=== PATIENT | female | born 1995 | race Caucasian/White ===

== ENCOUNTER 2023-03-06 11:18 | Emergency (ER) | payer OTHER ==
[2023-03-06 11:37] VITALS: PULSE 82
--- NOTE | 2023-03-06 11:51 | ED ---
Fall HPI - General Chief Complaint: Fall Stated Complaint: fall - neck pain Time Seen by Provider: 03/06/23 11:43 Source: patient, RN notes reviewed Mode of arrival: ambulatory Limitations: no limitations - History of Present Illness Initial Comments: This is a 28-year-old female presents emergency Department chief complaint of slip and fall. She states that over the weekend she was [place] states that she slipped on rocks and struck her head. Patient did have mild headache and neck pain and stiffness. Patient states he has improved some. Denies any blurred vision or nausea vomiting fevers chills patient offers no other associated symptoms. - Related Data Home Medications Medication Instructions Recorded Confirmed Cetirizine HCl 10 mg PO HS 02/10/16 02/10/16 Levonorgestrel/Ethin.estradiol 1 tab PO DAILY 02/10/16 02/10/16 [Aviane-28 Tablet] Mupirocin Calcium [Mupirocin] 1 applic TOPICAL TID 02/10/16 02/10/16 PARoxetine HCL [Paroxetine HCl] 20 mg PO DAILY 02/10/16 02/10/16 Allergies Allergy/AdvReac Type Severity Reaction Status Date / Time Milk Containing Products Allergy Nausea Verified 03/06/23 11:39 [Dairy] Penicillins AdvReac Unknown Verified 03/06/23 11:39 Review of Systems ROS Statement: Those systems with pertinent positive or pertinent negative responses have been documented in the HPI. ROS Other: All systems not noted in ROS Statement are negative. Past Medical History Past Medical History: No Reported History History of Any Multi-Drug Resistant Organisms: None Reported Past Surgical History: Tonsillectomy Additional Past Surgical History / Comment(s): [place] teeth removal (spring 2022) Past Psychological History: No Psychological Hx Reported Smoking Status: Never smoker Past Alcohol Use History: Occasional Past Drug Use History: None Reported General Exam Limitations: no limitations General appearance: alert, in no apparent distress Head exam: Present: atraumatic, normocephalic, normal inspection Eye exam: Present: normal appearance, PERRL, EOMI. Absent: scleral icterus, conjunctival injection, periorbital swelling ENT exam: Present: normal exam, normal oropharynx, mucous membranes moist Neck exam: Present: normal inspection, tenderness, full ROM. Absent: meningismus, lymphadenopathy Respiratory exam: Present: normal lung sounds bilaterally. Absent: respiratory distress, wheezes, rales, rhonchi, stridor Cardiovascular Exam: Present: regular rate, normal rhythm, normal heart sounds. Absent: systolic murmur, diastolic murmur, rubs, gallop, clicks Neurological exam: Present: alert, oriented X3, CN II-XII intact, reflexes normal. Absent: motor sensory deficit Course Vital Signs 03/06/23 03/06/23 11:33 13:34 Temperature 98.0 F 98.1 F Pulse Rate 82 82 Respiratory 18 16 Rate Blood Pressure 144/75 122/82 O2 Sat by Pulse 99 96 Oximetry Medical Decision Making - Medical Decision Making Was pt. sent in by a medical professional or institution (, [facility], CUT OUT WORKER, urgent care, hospital, or residential...) When possible be specific @ -No Did you speak to anyone other than the patient for history (EMS, parent, family, police, friend...)? What history was obtained from this source @ -No Did you review nursing and triage notes (agree or disagree)? Why? @ -I reviewed and agree with nursing and triage notes Were old charts reviewed (outside hosp., previous admission, EMS record, old EKG, old radiological studies, urgent care reports/EKG's, residential records)? Report findings @ -No old charts were reviewed Differential Diagnosis (chest pain, altered mental status, abdominal pain women, abdominal pain men, vaginal bleeding, weakness, fever, dyspnea, syncope, headache, dizziness, GI bleed, back pain, seizure, CVA, palpatations, mental health, musculoskeletal)? @ -Fall, and currently lives, depression, cervical fracture EKG interpreted by me (3pts min.). @ -None X-rays interpreted by me (1pt min.). @ -None done CT interpreted by me (1pt min.). @ -CT brain, C-spine shows no acute intracranial hemorrhages cervical spine spurring noted no acute fracture U/S interpreted by me (1pt. min.). @ -None done What testing was considered but not performed or refused? (CT, X-rays, U/S, labs)? Why? @ -None What meds were considered but not given or refused? Why? @ -None Did you discuss the management of the patient with other professionals (professionals i.e. , [facility], CUT OUT WORKER, lab, RT, psych nurse, 7th grade social studies teacher, peoplesoft taleo manager, teacher, chief sustainability officer, case investigator)? Give summary @ -No Was smoking cessation discussed for >3mins.? @ -No Was critical care preformed (if so, how long)? @ -No Were there social determinants of health that impacted care today? How? (Homelessness, low income, unemployed, alcoholism, drug addiction, wesley sportation, low edu. Level, literacy, decrease access to med. care, long term, rehab)? @ -No Was there de-escalation of care discussed even if they declined (Discuss DNR or withdrawal of care, Hospice)? DNR status @ -No What co-morbidities impacted this encounter? (DM, HTN, Smoking, COPD, CAD, Cancer, CVA, ARF, Chemo, Hep., AIDS, mental health diagnosis, sleep apnea, morbid obesity)? @ -None Was patient admitted / discharged? Hospital course, mention meds given and route, prescriptions, significant lab abnormalities, going to OR and other pertinent info. @ -Discharge patient has essentially negative CT there is some spurring noted will follow-up outpatient for MRI with orthopedics her PCP. Undiagnosed new problem with uncertain prognosis? @ -No Drug Therapy requiring intensive monitoring for toxicity (Heparin, Nitro, Insulin, Cardizem)? @ -No Were any procedures done? @ -No Diagnosis/symptom? @ -Fall, closed head injury, cervical spine spurring Acute, or Chronic, or Acute on Chronic? @ -Acute Uncomplicated (without systemic symptoms) or Complicated (systemic symptoms)? @ -Uncomplicated. Side effects of treatment? @ -No Exacerbation, Progression, or Severe Exacerbation? @ -No Poses a threat to life or bodily function? How? (Chest pain, [place], [place], pneumonia, PE, COPD, DKA, ARF, appy, cholecystitis, CVA, Diverticulitis, Homicidal, Suicidal, threat to staff... and all critical care pts) @ -No Disposition Clinical Impression: Fall, Closed head injury, Cervical spine degeneration Disposition: HOME SELF-CARE Condition: Stable Instructions (If sedation given, give patient instructions): Head Injury (ED) Additional Instructions: Please return to the Emergency Department if symptoms worsen or any other concerns. Is patient prescribed a controlled substance at d/c from ED?: No Referrals: Kristen Ma MD [Primary Care Provider] - 1-2 days Pasia,E [place], DO [Doctor of Osteopathic Medicine] - 1-2 days Time of Disposition: 13:21
--- NOTE | 2023-03-06 13:12 | CT ---
EXAMINATION TYPE: CT brain aruna wo con DATE OF EXAM: 03/06/2023 COMPARISON: None HISTORY: Fall, pain CT DLP: 1687.6 mGycm, Automated exposure control for dose reduction was used. CONTRAST: Patient injected with 0 mL of Isovue 300. CT of the brain is performed utilizing 3 mm thick sections through the posterior fossa and 3 mm thick sections through the remaining calvarium. Study is performed within 24 hours of arrival to the hospital. No abnormal hyperdensity is present to suggest an acute intracranial hemorrhage. No mass lesion is evident. No acute infarcts are evident. Ventricles and sulci are appropriate for the patient age. Paranasal sinuses and mastoid air cells within the [id number] are clear. IMPRESSIONS: 1. No acute intracranial process. Follow-up MRI can be performed as clinically indicated CT cervical spine. COMPARISON: None CT of the cervical spine is performed in the axial plane at 2 mm thick sections. Reconstructed image s in the coronal, and sagittal plane are reviewed on the computer. No acute fractures are evident. Vertebral body alignment is normal. Disc heights are preserved. Vertebral body heights are preserved. No spinal canal stenosis is evident. Note is made of a posterior endplate C7 spur which has mild ante rior thecal sac compression. No stenosis is present. Cord contact may be present. Consider follow-up MRI. No neural foraminal stenosis is evident. IMPRESSIONS: 1. C7 endplate spurring may have mild anterior thecal sac impression. Consider follow-up with MRI. 2. No acute osseous abnormality cervical spine.
[2023-03-06 13:38] VITALS: BP 122/82; RESP 16; TEMP 98.1
== END 2023-03-06 13:37 | disposition home or self-care (01) ==
LOC: EC 11:18
DX: S09.90XA Unspecified injury of head, initial encounter (principal); G31.89 Other specified degenerative diseases of nervous system; Z88.0 Allergy status to penicillin; Z91.011 Allergy to milk products; W01.0XXA Fall on same level from slipping, tripping and stumbling without subsequent striking against object, initial encounter
CPT/HCPCS: 70450; 72125; 99284

== ENCOUNTER 2023-07-24 09:48 | Emergency (ER) | payer OTHER ==
[2023-07-24 10:15] VITALS: RESP 18; TEMP 98.1
[2023-07-24] MEDS ORDERED: KETOROLAC 15 MG/ML 1 ML VIAL IVP STA (10:36)
[2023-07-24] MEDS ORDERED: ONDANSETRON 4 MG/2 ML VIAL IVP STA (10:36)
[2023-07-24] MEDS ORDERED: SODIUM CHLORIDE 0.9% 1,000 ML IV STA (10:36)
[2023-07-24 11:35] LABS: ALT 20 U/L (4-34); AST 35 U/L (14-36); African American GFR (CKD) >90 (>60 ml/min/1.73 sqM); Albumin 3.9 g/dL (3.5-5.0); Alkaline Phosphatase 61 U/L (38-126); Amylase 42 U/L (30-110); Anion Gap 11 mmol/L; Blood Urea Nitrogen 10 mg/dL (7-17); Calcium 8.8 mg/dL (8.4-10.2); Carbon Dioxide 22 mmol/L (22-30); Chloride 105 mmol/L (98-107); Glucose 100 mg/dL (74-99); Lipase 61 U/L (23-300); Non-African American GFR(CKD) >90 (>60 ml/min/1.73 sqM); Sodium 138 mmol/L (137-145); Total Bilirubin 0.6 mg/dL (0.2-1.3); Total Protein 6.8 g/dL (6.3-8.2)
--- NOTE | 2023-07-24 11:38 | US ---
EXAMINATION TYPE: US gallbladder DATE OF EXAM: 07/24/2023 COMPARISON: NONE CLINICAL INDICATION: Female, 28 years old with history of RUQ pain; RUQ pain x 2 days. TECHNIQUE: Multiple sonographic images of the right upper quadrant are obtained. FINDINGS: EXAM MEASUREMENTS: Liver Length: 19.8 cm Gallbladder Wall: 0.25 cm CBD: 0.28 cm Right Kidney: 11.1 x 5.1 x 4.3 cm DEMAND PLANNING ANALYST NOTES: Limited due to gas. Pancreas: Tail was obscured by gas. Liver: Limited. Appears enlarged and heterogeneous. Gallbladder: Appears anechoic. Evidence for sonographic Diaz's sign: No CBD: Portions seen appear wnl Right Kidney: No hydronephrosis or masses seen IMPRESSION: 1. Hepatomegaly with some fatty infiltration. 2. No additional acute ultrasound abnormality right upper quadrant
[2023-07-24 11:45] LABS: Appearance,Urine Clear (Clear); Bilirubin,Urine Negative (Negative); Blood,Urine Negative (Negative); Color,Urine Colorless; Glucose,Urine (UA) Negative (Negative); Ketones,Urine Negative (Negative); Leukocyte Esterase,Urine Negative (Negative); Nitrite,Urine Negative (Negative); Protein,Urine Negative (Negative); Specific Gravity,Urine 1.003 (1.001-1.035); Urobilinogen,Urine <2.0 mg/dL (<2.0)
[2023-07-24 11:47] LABS: Basophils % (A) 0 %; Eosinophils # (A) 0.1 k/uL (0-0.7); Eosinophils % (A) 1 %; HCT 40.7 % (34.0-46.0); HGB 13.5 gm/dL (11.4-16.0); Lymphocytes # (A) 1.5 k/uL (1.0-4.8); Lymphocytes % (A) 20 %; MCH 29.9 pg (25.0-35.0); MCHC 33.2 g/dL (31.0-37.0); MCV 89.9 fL (80.0-100.0); Mean Platelet Volume 7.7; Monocytes # (A) 0.8 k/uL (0-1.0); Monocytes % (A) 11 %; Neutrophils % (A) 66 %; Platelet Count 223 k/uL (150-450); RBC 4.53 m/uL (3.80-5.40); RDW 13.3 % (11.5-15.5); WBC 7.6 k/uL (3.8-10.6)
[2023-07-24 11:51] LABS: Potassium 3.9 mmol/L (3.5-5.1)
--- NOTE | 2023-07-24 12:20 | ED ---
Abdominal Pain HPI - General Chief Complaint: Abdominal Pain Stated Complaint: Abd Pain Time Seen by Provider: 07/24/23 10:14 Source: patient, RN notes reviewed Mode of arrival: ambulatory Limitations: no limitations - History of Present Illness Initial Comments: This is a 28-year-old female who presents to the emergency department for abdominal pain, nausea, and vomiting. States that for the last 2 days she has had pain in the upper abdomen that seems to be worse with eating. Unsure if this is related to any specific foods. She has had associated nausea and vomiting as well. She initially went to urgent care and was advised to come here to rule out problems with her gallbladder. Denies any fevers or chills. She has never had her gallbladder evaluated in the past. MD Complaint: abdominal pain Onset/Timin -: days(s) - Related Data Home Medications Medication Instructions Recorded Confirmed Cetirizine HCl 10 mg PO HS 02/10/16 02/10/16 Levonorgestrel/Ethin.estradiol 1 tab PO DAILY 02/10/16 02/10/16 [Aviane-28 Tablet] Mupirocin Calcium [Mupirocin] 1 applic TOPICAL TID 02/10/16 02/10/16 PARoxetine HCL [Paroxetine HCl] 20 mg PO DAILY 02/10/16 02/10/16 Previous Rx's Medication Instructions Recorded Ketorolac [Toradol] 10 mg PO Q6HR PRN #15 tab 07/24/23 Ondansetron Odt [Zofran Odt] 4 mg PO Q8HR PRN #15 tab 07/24/23 Allergies Allergy/AdvReac Type Severity Reaction Status Date / Time Milk Containing Products Allergy Nausea Verified 07/24/23 10:04 (Dairy) [Dairy] Penicillins AdvReac Unknown Verified 07/24/23 10:04 Review of Systems ROS Statement: Those systems with pertinent positive or pertinent negative responses have been documented in the HPI. ROS Other: All systems not noted in ROS Statement are negative. Past Medical History Past Medical History: No Reported History History of Any Multi-Drug Resistant Organisms: None Reported Past Surgical History: Tonsillectomy Additional Past Surgical History / Comment(s): [place] teeth removal (spring 2022) Past Psychological History: No Psychological Hx Reported Smoking Status: Never smoker Past Alcohol Use History: Occasional Past Drug Use History: None Reported General Exam Limitations: no limitations General appearance: alert, in no apparent distress Head exam: Present: atraumatic, normocephalic, normal inspection Respiratory exam: Present: normal lung sounds bilaterally. Absent: respiratory distress, wheezes, rales, rhonchi, stridor Cardiovascular Exam: Present: regular rate, normal rhythm, normal heart sounds. Absent: systolic murmur, diastolic murmur, rubs, gallop, clicks GI/Abdominal exam: Present: soft, tenderness (epigastric), normal bowel sounds. Absent: distended Neurological exam: Present: alert, oriented X3, CN II-XII intact Psychiatric exam: Present: normal affect, normal mood Skin exam: Present: warm, dry, intact, normal color. Absent: rash Course Vital Signs 07/24/23 07/24/23 10:00 13:41 Temperature 98.1 F Pulse Rate 98 88 Respiratory 18 18 Rate Blood Pressure 127/83 115/66 O2 Sat by Pulse 98 98 Oximetry Medical Decision Making - Medical Decision Making This is a 28-year-old female who presents to the emergency department for abdominal pain. Was pt. sent in by a medical professional or institution? @ -Urgent care Did you speak to anyone other than the patient for history? @ -No Did you review nursing and triage notes? @ -Yes, and I agree, it is accurate with regards to the patient's symptoms. Were old charts reviewed? @ -No Differential Diagnosis? @ -Differential Abdominal Pain Women: Appendicitis, Cholecystitis, diverticulosis, ischemic bowel, pancreatitis, hepatitis, UTI, gastroenteritis, AAA, incarcerated hernia, bowel obstruction, constipation, inflammatory bowel, hepatitis, peptic ulcer disease, splenic infarction, perforated viscus, vulvitis, ovarian torsion, PID, kidney stone, placenta abruption, this is not meant to be an all-inclusive list EKG interpreted by me (3pts min.)? @ -Not obtained X-rays interpreted by me (1pt min.)? @ -Not obtained CT interpreted by me (1pt min.)? @ -Not obtained U/S interpreted by me (1pt. min.)? @ -Gallbladder ultrasound obtained. My interpretation identifies no evidence of cholelithiasis. What testing was considered but not performed? (CT, X-rays, U/S, labs)? Why? @ -None What meds were considered but not given? Why? @ -None Did you discuss the management of the patient with other professionals? @ -No Did you reconcile home meds? @ -No Was smoking cessation discussed for >3mins.? @ -No Was critical care preformed (if so, how long)? @ -No Were there social determinants of health that impacted care today? How? (Homelessness, low income, unemployed, alcoholism, drug addiction, transportation, low edu. Level, literacy, decrease access to med. care, usp, rehab)? @ -No Was there de-escalation of care discussed even if they declined? (Discuss DNR or withdrawal of care, Hospice)? @ -No What co-morbidities impacted this encounter? (DM, HTN, Smoking, COPD, CAD, Cancer, CVA, Hep., AIDS, mental health diagnosis, sleep apnea, morbid obesity)? @ -None Was patient admitted / discharged? @ -Discharged. Lab work obtained and found to be unremarkable. Urinalysis negative for signs of infection. Gallbladder ultrasound obtained demonstrating hepatomegaly with some fatty infiltration and no other acute findings. Gallbladder was found to be within normal limits without evidence of mamadou lithiasis. Her symptoms were well controlled in the emergency department. Discussed the possibility of the hepatomegaly with fatty infiltration contributing to her pain, in that if she is consuming excess fructose, such as in sugary drinks, this can cause the liver capsule to swell or expand, causing the pain. Patient does admit to having sugary beverages from time to time. Advised she stop doing this to see if symptoms improve. We also discussed the possibility of a HIDA scan to evaluate gallbladder function. Prescription for Toradol and Zofran provided with dosing instructions reviewed. Patient discharged home in stable condition and will follow up with her primary care provider. Undiagnosed new problem with uncertain prognosis? @ -None Drug Therapy requiring intensive monitoring for toxicity (Heparin, Nitro, Insulin, Cardizem)? @ -None Were any procedures done? @ -None Diagnosis/symptom? @ -Abdominal pain, nausea and vomiting Acute, or Chronic, or Acute on Chronic? @ -Acute Uncomplicated (without systemic symptoms) or Complicated (systemic symptoms)? @ -Uncomplicated Side effects of treatment? @ -None Exacerbation, Progression, or Severe Exacerbation] @ -Not applicable Poses a threat to life or bodily function? @ -No Return precautions reviewed in depth, the patient is instructed to return to the emergency department with any new, worsening, or concerning symptoms. Patient verbalized understanding. This case was discussed in detail with the attending ED physician, Dr. Bowie. Presentation, findings, and treatment plan discussed in detail as well. - Lab Data Result diagrams: 07/24/23 10:50 07/24/23 10:50 Lab Results 07/24/23 07/24/23 07/24/23 Range/Units 10:50 10:50 10:50 WBC 7.6 (3.8-10.6) k/uL RBC 4.53 (3.80-5.40) m/uL Hgb 13.5 (11.4-16.0) gm/dL Hct 40.7 (34.0-46.0) % MCV 89.9 (80.0-100.0) fL MCH 29.9 (25.0-35.0) pg MCHC 33.2 (31.0-37.0) g/dL RDW 13.3 (11.5-15.5) % Plt Count 223 (150-450) k/uL MPV 7.7 Neutrophils % 66 % Lymphocytes % 20 % Monocytes % 11 % Eosinophils % 1 % Basophils % 0 % Neutrophils # 5.0 (1.3-7.7) k/uL Lymphocytes # 1.5 (1.0-4.8) k/uL Monocytes # 0.8 (0-1.0) k/uL Eosinophils # 0.1 (0-0.7) k/uL Basophils # 0.0 (0-0.2) k/uL Sodium (137-145) mmol/L Potassium (3.5-5.1) mmol/L Chloride (98-107) mmol/L Carbon Dioxide (22-30) mmol/L Anion Gap mmol/L BUN (7-17) mg/dL Creatinine (0.52-1.04) mg/dL Est GFR (CKD-EPI)AfAm (>60 ml/min/1.73 sqM) Est GFR (CKD-EPI)NonAf (>60 ml/min/1.73 sqM) Glucose (74-99) mg/dL Calcium (8.4-10.2) mg/dL Total Bilirubin (0.2-1.3) mg/dL AST (14-36) U/L ALT (4-34) U/L Alkaline Phosphatase (38-126) U/L Total Protein (6.3-8.2) g/dL Albumin (3.5-5.0) g/dL Amylase (30-110) U/L Lipase (23-300) U/L Urine Color Colorless Urine Appearance Clear (Clear) Urine pH 7.0 (5.0-8.0) Ur Specific [place] 1.003 (1.001-1.035) Urine Protein Negative (Negative) Urine Glucose (UA) Negative (Negative) Urine Ketones Negative (Negative) Urine Blood Negative (Negative) Urine Nitrite Negative (Negative) Urine Bilirubin Negative (Negative) Urine Urobilinogen <2.0 (<2.0) mg/dL Ur Leukocyte Esterase Negative (Negative) Urine HCG, Qual Not Detected (Not Detectd) 07/24/23 Range/Units 10:50 WBC (3.8-10.6) k/uL RBC (3.80-5.40) m/uL Hgb (11.4-16.0) gm/dL Hct (34.0-46.0) % MCV (80.0-100.0) fL MCH (25.0-35.0) pg MCHC (31.0-37.0) g/dL RDW (11.5-15.5) % Plt Count (150-450) k/uL MPV Neutrophils % % Lymphocytes % % Monocytes % % Eosinophils % % Basophils % % Neutrophils # (1.3-7.7) k/uL Lymphocytes # (1.0-4.8) k/uL Monocytes # (0-1.0) k/uL Eosinophils # (0-0.7) k/uL Basophils # (0-0.2) k/uL Sodium 138 (137-145) mmol/L Potassium 3.9 (3.5-5.1) mmol/L Chloride 105 (98-107) mmol/L Carbon Dioxide 22 (22-30) mmol/L Anion Gap 11 mmol/L BUN 10 (7-17) mg/dL Creatinine 0.58 (0.52-1.04) mg/dL Est GFR (CKD-EPI)AfAm >90 (>60 ml/min/1.73 sqM) Est GFR (CKD-EPI)NonAf >90 (>60 ml/min/1.73 sqM) Glucose 100 H (74-99) mg/dL Calcium 8.8 (8.4-10.2) mg/dL Total Bilirubin 0.6 (0.2-1.3) mg/dL AST 35 (14-36) U/L ALT 20 (4-34) U/L Alkaline Phosphatase 61 (38-126) U/L Total Protein 6.8 (6.3-8.2) g/dL Albumin 3.9 (3.5-5.0) g/dL Amylase 42 (30-110) U/L Lipase 61 (23-300) U/L Urine Color Urine Appearance (Clear) Urine pH (5.0-8.0) Ur Specific [place] (1.001-1.035) Urine Protein (Negative) Urine Glucose (UA) (Negative) Urine Ketones (Negative) Urine Blood (Negative) Urine Nitrite (Negative) Urine Bilirubin (Negative) Urine Urobilinogen (<2.0) mg/dL Ur Leukocyte Esterase (Negative) Urine HCG, Qual (Not Detectd) - Radiology Data Radiology results: report reviewed, image reviewed Disposition Clinical Impression: Epigastric pain, Nausea and vomiting Disposition: HOME SELF-CARE Instructions (If sedation given, give patient instructions): Gallbladder Ejection Fraction (DC), HIDA Scan (DC), Abdominal Pain (ED), Biliary Dyskinesia (DC) Additional Instructions: Return to the emergency department with any new, worsening, or concerning symptoms.Take the Toradol with Tylenol as needed for pain relief. If you choose to take the Toradol, do not take any other anti-inflammatories such as ibuprofen, take one or the other. Take the Zofran up to every 8 hours as needed for nausea and vomiting. Slowly advance her diet as tolerated and remain well- hydrated. Follow up with your primary care provider in 1-2 days. You may need a HIDA scan for further evaluation of your gallbladder function. Try to reduce your consumption of fructose as well, this can also contribute to your symptoms. Prescriptions: Ketorolac [Toradol] 10 mg PO Q6HR PRN #15 tab PRN Reason: Pain Ondansetron Odt [Zofran Odt] 4 mg PO Q8HR PRN #15 tab PRN Reason: Nausea And Vomiting Is patient prescribed a controlled substance at d/c from ED?: No Referrals: Kristen Ma MD [Primary Care Provider] - 1-2 days
[2023-07-24 14:01] VITALS: BP 115/66; PULSE 88
== END 2023-07-24 13:41 | disposition home or self-care (01) ==
LOC: EC 09:48
DX: R10.13 Epigastric pain (principal); R11.2 Nausea with vomiting, unspecified; Z88.0 Allergy status to penicillin; Z91.011 Allergy to milk products
CPT/HCPCS: 36415; 80053; 82150; 83690; 85025; 81003; 81025; 76705; 99284; 96374; 96375; J2405; J1885

== ENCOUNTER → 2024-03-21 | Outpatient (CLI) | payer BC ==
--- NOTE | 2024-04-22 15:18 | CONS ---
CONSULTATION A 29-year-old lady, has been evaluated in [facility] for possible obstructive sleep apnea-hypopnea syndrome. HISTORY OF PRESENT ILLNESS: Sleep-Wake evaluation: The patient's usual sleep schedule from 11 p.m. to 6:30 a.m. on weekdays and from 11 p.m. to 8 a.m. on weekends. Sometimes, she has problems with falling asleep, has TV set in bedroom. The patient usually sleeps on the back and side position with snoring and awakenings from sleep once with nocturia. Positive history of panic attack and palpitations during the sleep. Occasionally questionable history of hypnagogic hallucinations. No sleep paralysis or cataplexy. In the morning, the patient wakes up tired, has problems with memory, irritability, depression and anxiety. [place] Sleepiness Scale is 2. The patient may take one nap around 2 to 3 p.m. PAST MEDICAL HISTORY: Positive for anxiety and anemia, acid reflux. PAST SURGICAL HISTORY: Tonsillectomy. MEDICATIONS: 1. Escitalopram 5 mg once a day. 2. Benadryl 25 mg once a day. 3. Magnesium, vitamin B12 and D supplements. SOCIAL HISTORY: Negative for smoking; alcohol consumption rarely. FAMILY HISTORY: Acid reflex, mental illness. PHYSICAL EXAMINATION: GENERAL: lady without distress. VITAL SIGNS: BP 122/80, HR 81, RR 16, weight 228.4 pounds, height 5 feet 4 inches, BMI 39.1, temperature 98.2, oxygen saturation at room air 96%. HEENT: Oropharynx, low position of soft palate, Mallampati 3. NECK: Wide, 19-1/4 inches in circumference. LUNGS: Clear to percussion and to auscultation. Good air exchange. No wheezing or rhonchi. HEART: S1, S2 regular. No murmurs, gallops, or rubs. ABDOMEN: Soft and nontender. Bowel sounds are present. No organomegaly appreciated. EXTREMITIES: No clubbing or cyanosis. MERGERS AND ACQUISITIONS ASSOCIATE: Awake, alert, and oriented X3. Cranial nerves 2 to 7 intact. There is no fasciculation or atrophy. noted. No focal deficits observed. IMPRESSION: 1. Snoring, awakenings from sleep, low position of soft palate, Mallampati 3, wide neck, 19-1/4 inches in circumference. Obstructive sleep apnea-hypopnea syndrome. 2. Obesity; body mass index 39.1. 3. History of anxiety. 4. Acid reflux. 5. History of anemia. 6. History of allergy. 7. Status post tonsillectomy. PLAN: 1. Polysomnography for evaluation of patient breathing during sleep. 2. Following plan after reading sleep study. 3. Losing weight program. 4. Sleep hygiene with regular time in bed for at least 8 hours. 5. No driving if feeling sleepiness. Thank you very much for referring this patient for consultation. MMODL / IJN: [id number] /
== END ==
LOC: 3 N SLEEP 14:40
PROVIDERS: ATTEND Internal Medicine
CPT/HCPCS: 99211

== ENCOUNTER 2024-06-30 22:19 | Observation (INO) | payer BC ==
--- NOTE | 2024-06-30 22:51 | ED ---
Nausea/Vomiting/Diarrhea HPI - General Chief complaint: Nausea/Vomiting/Diarrhea Stated complaint: NVD Time Seen by Provider: 06/30/24 22:49 Source: patient, RN notes reviewed Mode of arrival: ambulatory Limitations: no limitations - History of Present Illness Initial comments: 29-year-old female presented to the ER with a chief complaint of nausea, vom iting and diarrhea. Patient states around 5 PM this evening she started to experience loose runny stools. She states shortly after she started to feel nauseous and had multiple bouts of emesis. She denies any hematic emesis, hematochezia or melena. She does states she is on her menstrual cycle and that it is heavier than normal. She states she has lower abdominal cramping but contributes this to her menstrual cycle. She has tried taking Tylenol but states she believes she threw this up as she has been unable to keep anything including water down. She has not tried anything else for her symptoms at this time. Patient states she has been reports a history of "stomach issues" in the past but has no clear diagnosis. She denies any recent fevers, chills, chest pain, shortness of breath, urinary complaints or peripheral edema. - Related Data Home Medications Medication Instructions Recorded Confirmed Cetirizine HCl 10 mg PO HS 02/10/16 02/10/16 Levonorgestrel/Ethin.estradiol 1 tab PO DAILY 02/10/16 02/10/16 [Aviane-28 Tablet] Mupirocin Calcium [Mupirocin] 1 applic TOPICAL TID 02/10/16 02/10/16 PARoxetine HCL [Paroxetine HCl] 20 mg PO DAILY 02/10/16 02/10/16 Previous Rx's Medication Instructions Recorded Ketorolac [Toradol] 10 mg PO Q6HR PRN #15 tab 07/24/23 Ondansetron Odt [Zofran Odt] 4 mg PO Q8HR PRN #15 tab 07/24/23 Allergies Allergy/AdvReac Type Severity Reaction Status Date / Time Milk Containing Products Allergy Nausea Verified 06/30/24 22:27 (Dairy) [Dairy] Penicillins AdvReac Unknown Verified 06/30/24 22:27 Review of Systems ROS Statement: Those systems with pertinent positive or pertinent negative responses have been documented in the HPI. ROS Other: All systems not noted in ROS Statement are negative. Past Medical History Past Medical History: No Reported History History of Any Multi-Drug Resistant Organisms: None Reported Past Surgical History: Tonsillectomy Additional Past Surgical History / Comment(s): [place] teeth removal (spring 2022) Past Psychological History: Anxiety Smoking Status: Never smoker Past Alcohol Use History: Rare Past Drug Use History: None Reported General Exam Limitations: no limitations General appearance: alert, in no apparent distress Respiratory exam: Present: normal lung sounds bilaterally. Absent: respiratory distress, wheezes, rales, rhonchi, stridor Cardiovascular Exam: Present: regular rate, normal rhythm, normal heart sounds. Absent: systolic murmur, diastolic murmur, rubs, gallop, clicks GI/Abdominal exam: Present: soft, tenderness (Right upper quadrant), normal bowel sounds Neurological exam: Present: alert, oriented X3, CN II-XII intact Skin exam: Present: warm, dry, intact, normal color. Absent: rash Course Vital Signs 06/30/24 06/30/24 22:27 23:17 Temperature 97.5 F L Pulse Rate 111 H 97 Respiratory 16 17 Rate Blood Pressure 126/69 116/62 O2 Sat by Pulse 97 97 Oximetry - Reevaluation(s) Reevaluation #1: 07/01/24 00:42 Case discussed with Sound physician, Dr. Reaves, for admission. Medical Decision Making - Medical Decision Making Was pt. sent in by a medical professional or institution (, PA, PHOTOENGRAVING ETCHER APPRENTICE, urgent care, hospital, or longterm...) When possible be specific @ -No Did you speak to anyone other than the patient for history (EMS, parent, family, police, friend...)? What history was obtained from this source @ -No Did you review nursing and triage notes (agree or disagree)? Why? @ -I reviewed and agree with nursing and triage notes Were old charts reviewed (outside hosp., previous admission, EMS record, old EKG, old radiological studies, urgent care reports/EKG's, longterm records)? Report findings @ -No old charts were reviewed Differential Diagnosis (chest pain, altered mental status, abdominal pain women, abdominal pain men, vaginal bleeding, weakness, fever, dyspnea, syncope, headache, dizziness, GI bleed, back pain, seizure, CVA, palpatations, mental health, musculoskeletal)? @ -Differential Abdominal Pain Women:Appendicitis, Cholecystitis, diverticulosis, ischemic bowel, pancreatitis, hepatitis, UTI, gastroenteritis, AAA, incarcerated hernia, bowel obstruction, constipation, inflammatory bowel, hepatitis, peptic ulcer disease, splenic infarction, perforated viscus, vulviti s, ovarian torsion, PID, kidney stone, placenta abruption, this is not meant to be an all-inclusive list EKG interpreted by me (3pts min.). @ -None done X-rays interpreted by me (1pt min.). @ -None done CT interpreted by me (1pt min.). @ -CT abdomen pelvis showing mild uncomplicated colitis. U/S interpreted by me (1pt. min.). @ -Gallbladder ultrasound negative for acute abnormality. What testing was considered but not performed or refused? (CT, X-rays, U/S, labs)? Why? @ -None What meds were considered but not given or refused? Why? @ -None Did you discuss the management of the patient with other professionals (professionals i.e. , PA, PHOTOENGRAVING ETCHER APPRENTICE, lab, RT, psych nurse, social media marketing specialist, accounting policy consultant, teacher, workers' compensation hearings officer, business case analyst)? Give summary @ -Yes, case discussed with sound physician, Dr. Reaves, for admission. Was smoking cessation discussed for >3mins.? @ -No Was critical care preformed (if so, how long)? @ -No Were there social determinants of health that impacted care today? How? (Homelessness, low income, unemployed, alcoholism, drug addiction, transportation, low edu. Level, literacy, decrease access to med. care, longterm, rehab)? @ -No Was there de-escalation of care discussed even if they declined (Discuss DNR or withdrawal of care, Hospice)? DNR status @ -No What co-morbidities impacted this encounter? (DM, HTN, Smoking, COPD, CAD, Cancer, CVA, ARF, Chemo, Hep., AIDS, mental health diagnosis, sleep apnea, morbid obesity)? @ -None Was patient admitted / discharged? Hospital course, mention meds given and route, prescriptions, significant lab abnormalities, going to OR and other pertinent info. @ -Admitted. 29-year-old female presented the ER with a chief complaint of nausea, vomiting and diarrhea. History and physical exam completed. Patient is tachycardic 111 bpm upon arrival vitals otherwise stable. Patient no signs of acute distress. Tenderness to palpation of the right upper quadrant. Normal bowel sounds with no rebound or guarding. Laboratory studies obtained showing leukocytosis of 22.6 with a left shift. Lactic of 2.6. Electrolytes unremarkable. Total bilirubin 1.8, AST 67, ALT 20, alk phos 64. Lipase 75. Urine analysis is hemorrhagic which is likely contaminated from vaginal bleeding due to menstrual cycle. Viral swabs negative. Gallbladder ultrasound initially obtained due to right upper quadrant abdominal tenderness and negative. CT abdomen pelvis obtained at that time showing mild uncomplicated colitis. Admission considered and discussed with Sound physician,. Jelly Greco, for IV hydration and symptom control. Patient received 2 L IV fluid bolus and started on maintenance fluids. Symptomatic control in the ER with Zofran and toradol. Antibiotics deferred to admitted team. Patient agreeable for admission. Patient admitted in stable condition. Case discussed with ED attending Dr. De Los Santos. Undiagnosed new problem with uncertain prognosis? @ -No Drug Therapy requiring intensive monitoring for toxicity (Heparin, Nitro, Insulin, Cardizem)? @ -No Were any procedures done? @ -No Diagnosis/symptom? @ -Colitis/leukocytosis Acute, or Chronic, or Acute on Chronic? @ -Acute Uncomplicated (without systemic symptoms) or Complicated (systemic symptoms)? @ -Uncomplicated Side effects of treatment? @ -No Exacerbation, Progression, or Severe Exacerbation? @ -No Poses a threat to life or bodily function? How? (Chest pain, USA, VT, pneumonia, PE, COPD, DKA, ARF, appy, cholecystitis, CVA, Diverticulitis, Homicidal, Suicidal, threat to staff... and all critical care pts) @ -No - Lab Data Result diagrams: 06/30/24 23:08 06/30/24 23:08 Lab Results 06/30/24 06/30/24 06/30/24 Range/Units 23:08 23:08 23:08 WBC 22.6 H (3.8-10.6) k/uL RBC 4.85 (3.80-5.40) m/uL Hgb 14.6 (11.4-16.0) gm/dL Hct 43.8 (34.0-46.0) % MCV 90.3 (80.0-100.0) fL MCH 30.1 (25.0-35.0) pg MCHC 33.4 (31.0-37.0) g/dL RDW 13.5 (11.5-15.5) % Plt Count 409 (150-450) k/uL MPV 7.6 Neutrophils % 88 % Lymphocytes % 5 % Monocytes % 5 % Eosinophils % 1 % Basophils % 0 % Neutrophils # 20.0 H (1.3-7.7) k/uL Lymphocytes # 1.1 (1.0-4.8) k/uL Monocytes # 1.2 H (0-1.0) k/uL Eosinophils # 0.2 (0-0.7) k/uL Basophils # 0.1 (0-0.2) k/uL Sodium 139 (137-145) mmol/L Potassium (3.5-5.1) mmol/L Chloride 107 (98-107) mmol/L Carbon Dioxide 22 (22-30) mmol/L Anion Gap 10 mmol/L BUN 13 (7-17) mg/dL Creatinine 0.75 (0.52-1.04) mg/dL Est GFR (CKD-EPI)AfAm >90 (>60 ml/min/1.73 sqM) Est GFR (CKD-EPI)NonAf >90 (>60 ml/min/1.73 sqM) Glucose 125 H (74-99) mg/dL Lactic Ac Sepsis Rflx Plasma Lactic Acid Dusty 2.6 H* (0.7-2.0) mmol/L Calcium 9.1 (8.4-10.2) mg/dL Total Bilirubin 1.8 H (0.2-1.3) mg/dL AST 67 H (14-36) U/L ALT 20 (4-34) U/L Alkaline Phosphatase 64 (38-126) U/L Total Protein 9.5 H (6.3-8.2) g/dL Albumin 5.6 H (3.5-5.0) g/dL Amylase 56 (30-110) U/L Lipase 75 (23-300) U/L Urine Color Urine Appearance (Clear) Urine pH (5.0-8.0) Ur Specific [place] (1.001-1.035) Urine Protein (Negative) Urine Glucose (UA) (Negative) Urine Ketones (Negative) Urine Blood (Negative) Urine Nitrite (Negative) Urine Bilirubin (Negative) Urine Urobilinogen (<2.0) mg/dL Ur Leukocyte Esterase (Negative) Urine RBC (0-5) /hpf Urine WBC (0-5) /hpf Ur Squamous Epith Cells (0-4) /hpf Urine Mucus (None) /hpf Urine HCG, Qual (Not Detectd) Urine Opiates Screen (NotDetected) Ur Oxycodone Screen (NotDetected) Urine Methadone Screen (NotDetected) Ur Barbiturates Screen (NotDetected) U Tricyclic Antidepress (NotDetected) Ur Phencyclidine Scrn (NotDetected) Ur Amphetamines Screen (NotDetected) U Methamphetamines Scrn (NotDetected) U Benzodiazepines Scrn (NotDetected) Urine Cocaine Screen (NotDetected) U Marijuana (THC) Screen (NotDetected) Influenza Type A (PCR) (Not Detectd) Influenza Type B (PCR) (Not Detectd) RSV (PCR) (Not Detectd) SARS-CoV-2 (PCR) (Not Detectd) 06/30/24 06/30/24 06/30/24 Range/Units 23:10 23:32 23:32 WBC (3.8-10.6) k/uL RBC (3.80-5.40) m/uL Hgb (11.4-16.0) gm/dL Hct (34.0-46.0) % MCV (80.0-100.0) fL MCH (25.0-35.0) pg MCHC (31.0-37.0) g/dL RDW (11.5-15.5) % Plt Count (150-450) k/uL MPV Neutrophils % % Lymphocytes % % Monocytes % % Eosinophils % % Basophils % % Neutrophils # (1.3-7.7) k/uL Lymphocytes # (1.0-4.8) k/uL Monocytes # (0-1.0) k/uL Eosinophils # (0-0.7) k/uL Basophils # (0-0.2) k/uL Sodium (137-145) mmol/L Potassium (3.5-5.1) mmol/L Chloride (98-107) mmol/L Carbon Dioxide (22-30) mmol/L Anion Gap mmol/L BUN (7-17) mg/dL Creatinine (0.52-1.04) mg/dL Est GFR (CKD-EPI)AfAm (>60 ml/min/1.73 sqM) Est GFR (CKD-EPI)NonAf (>60 ml/min/1.73 sqM) Glucose (74-99) mg/dL Lactic Ac Sepsis Rflx Plasma Lactic Acid Dusty (0.7-2.0) mmol/L Calcium (8.4-10.2) mg/dL Total Bilirubin (0.2-1.3) mg/dL AST (14-36) U/L ALT (4-34) U/L Alkaline Phosphatase (38-126) U/L Total Protein (6.3-8.2) g/dL Albumin (3.5-5.0) g/dL Amylase (30-110) U/L Lipase (23-300) U/L Urine Color Yellow Urine Appearance Clear (Clear) Urine pH 6.5 (5.0-8.0) Ur Specific [place] 1.033 (1.001-1.035) Urine Protein 1+ H (Negative) Urine Glucose (UA) Negative (Negative) Urine Ketones 1+ H (Negative) Urine Blood Moderate H (Negative) Urine Nitrite Negative (Negative) Urine Bilirubin Negative (Negative) Urine Urobilinogen <2.0 (<2.0) mg/dL Ur Leukocyte Esterase Negative (Negative) Urine RBC 2 (0-5) /hpf Urine WBC 1 (0-5) /hpf Ur Squamous Epith Cells <1 (0-4) /hpf Urine Mucus Moderate H (None) /hpf Urine HCG, Qual Not Detected (Not Detectd) Urine Opiates Screen (NotDetected) Ur Oxycodone Screen (NotDetected) Urine Methadone Screen (NotDetected) Ur Barbiturates Screen (NotDetected) U Tricyclic Antidepress (NotDetected) Ur Phencyclidine Scrn (NotDetected) Ur Amphetamines Screen (NotDetected) U Methamphetamines Scrn (NotDetected) U Benzodiazepines Scrn (NotDetected) Urine Cocaine Screen (NotDetected) U Marijuana (THC) Screen (NotDetected) Influenza Type A (PCR) Not Detected (Not Detectd) Influenza Type B (PCR) Not Detected (Not Detectd) RSV (PCR) Not Detected (Not Detectd) SARS-CoV-2 (PCR) Not Detected (Not Detectd) 06/30/24 06/30/24 Range/Units 23:32 23:36 WBC (3.8-10.6) k/uL RBC (3.80-5.40) m/uL Hgb (11.4-16.0) gm/dL Hct (34.0-46.0) % MCV (80.0-100.0) fL MCH (25.0-35.0) pg MCHC (31.0-37.0) g/dL RDW (11.5-15.5) % Plt Count (150-450) k/uL MPV Neutrophils % % Lymphocytes % % Monocytes % % Eosinophils % % Basophils % % Neutrophils # (1.3-7.7) k/uL Lymphocytes # (1.0-4.8) k/uL Monocytes # (0-1.0) k/uL Eosinophils # (0-0.7) k/uL Basophils # (0-0.2) k/uL Sodium (137-145) mmol/L Potassium (3.5-5.1) mmol/L Chloride (98-107) mmol/L Carbon Dioxide (22-30) mmol/L Anion Gap mmol/L BUN (7-17) mg/dL Creatinine (0.52-1.04) mg/dL Est GFR (CKD-EPI)AfAm (>60 ml/min/1.73 sqM) Est GFR (CKD-EPI)NonAf (>60 ml/min/1.73 sqM) Glucose (74-99) mg/dL Lactic Ac Sepsis Rflx Y Plasma Lactic Acid Dusty (0.7-2.0) mmol/L Calcium (8.4-10.2) mg/dL Total Bilirubin (0.2-1.3) mg/dL AST (14-36) U/L ALT (4-34) U/L Alkaline Phosphatase (38-126) U/L Total Protein (6.3-8.2) g/dL Albumin (3.5-5.0) g/dL Amylase (30-110) U/L Lipase (23-300) U/L Urine Color Urine Appearance (Clear) Urine pH (5.0-8.0) Ur Specific [place] (1.001-1.035) Urine Protein (Negative) Urine Glucose (UA) (Negative) Urine Ketones (Negative) Urine Blood (Negative) Urine Nitrite (Negative) Urine Bilirubin (Negative) Urine Urobilinogen (<2.0) mg/dL Ur Leukocyte Esterase (Negative) Urine RBC (0-5) /hpf Urine WBC (0-5) /hpf Ur Squamous Epith Cells (0-4) /hpf Urine Mucus (None) /hpf Urine HCG, Qual (Not Detectd) Urine Opiates Screen Not Detected (NotDetected) Ur Oxycodone Screen Not Detected (NotDetected) Urine Methadone Screen Not Detected (NotDetected) Ur Barbiturates Screen Not Detected (NotDetected) U Tricyclic Antidepress Not Detected (NotDetected) Ur Phencyclidine Scrn Not Detected (NotDetected) Ur Amphetamines Screen Not Detected (NotDetected) U Methamphetamines Scrn Not Detected (NotDetected) U Benzodiazepines Scrn Not Detected (NotDetected) Urine Cocaine Screen Not Detected (NotDetected) U Marijuana (THC) Screen Not Detected (NotDetected) Influenza Type A (PCR) (Not Detectd) Influenza Type B (PCR) (Not Detectd) RSV (PCR) (Not Detectd) SARS-CoV-2 (PCR) (Not Detectd) - Radiology Data Radiology results: report reviewed, image reviewed Disposition Clinical Impression: Colitis, Leukocytosis Disposition: ADMITTED IP TO THIS [facility] Condition: Stable Time of Disposition: 01:30
[2024-06-30] MEDS: ONDANSETRON 4 MG/2 ML VIAL IVP STA (23:14)
[2024-06-30] MEDS: SODIUM CHLORIDE 0.9% 1,000 ML IV STA (23:14)
[2024-06-30 23:18] LABS: Basophils # (A) 0.1 k/uL (0-0.2); Basophils % (A) 0 %; Eosinophils # (A) 0.2 k/uL (0-0.7); Eosinophils % (A) 1 %; HCT 43.8 % (34.0-46.0); HGB 14.6 gm/dL (11.4-16.0); Lymphocytes # (A) 1.1 k/uL (1.0-4.8); Lymphocytes % (A) 5 %; MCH 30.1 pg (25.0-35.0); MCHC 33.4 g/dL (31.0-37.0); MCV 90.3 fL (80.0-100.0); Mean Platelet Volume 7.6; Monocytes # (A) 1.2 k/uL (0-1.0); Monocytes % (A) 5 %; Neutrophils % (A) 88 %; Platelet Count 409 k/uL (150-450); RBC 4.85 m/uL (3.80-5.40); RDW 13.5 % (11.5-15.5); WBC 22.6 k/uL (3.8-10.6)
[2024-06-30 23:27] LABS: ALT 20 U/L (4-34); AST 67 U/L (14-36); African American GFR (CKD) >90 (>60 ml/min/1.73 sqM); Albumin 5.6 g/dL (3.5-5.0); Alkaline Phosphatase 64 U/L (38-126); Amylase 56 U/L (30-110); Anion Gap 10 mmol/L; Blood Urea Nitrogen 13 mg/dL (7-17); Calcium 9.1 mg/dL (8.4-10.2); Carbon Dioxide 22 mmol/L (22-30); Chloride 107 mmol/L (98-107); Glucose 125 mg/dL (74-99); Lipase 75 U/L (23-300); Non-African American GFR(CKD) >90 (>60 ml/min/1.73 sqM); Sodium 139 mmol/L (137-145); Total Bilirubin 1.8 mg/dL (0.2-1.3); Total Protein 9.5 g/dL (6.3-8.2)
[2024-06-30 23:43] LABS: Appearance,Urine Clear (Clear); Bilirubin,Urine Negative (Negative); Blood,Urine Moderate (Negative); Color,Urine Yellow; Glucose,Urine (UA) Negative (Negative); Ketones,Urine 1+ (Negative); Leukocyte Esterase,Urine Negative (Negative); Mucus,Urine Moderate /hpf; Nitrite,Urine Negative (Negative); PH, Urine 6.5 (5.0-8.0); Protein,Urine 1+ (Negative); RBC,Urine 2 /hpf (0-5); Specific Gravity,Urine 1.033 (1.001-1.035); Squamous Epithelial Cell,Urine <1 /hpf (0-4); Urobilinogen,Urine <2.0 mg/dL (<2.0); WBC,Urine 1 /hpf (0-5)
--- NOTE | 2024-06-30 23:51 | US ---
EXAMINATION TYPE: US gallbladder DATE OF EXAM: 06/30/2024 COMPARISON: US July 24, 2023 CLINICAL INDICATION: Female, 29 years old with history of n/v abd pain; Pt states N/V/D since 5pm tod ay TECHNIQUE: Grayscale and color Doppler imaging of the right upper quadrant was performed. FINDINGS: EXAM MEASUREMENTS: Liver Length: 18.5 cm Gallbladder Wall: 0.2 cm CBD: 0.4 cm Right Kidney: 10.7 x 4.1 x 5.3 cm SPLITTER MACHINE NOTES: Pancreas: wnl Liver: Enlarged, heterogeneous Gallbladder: wnl Evidence for sonographic Diaz's sign: No CBD: wnl Right Kidney: No evidence of hydro Similar findings when compared to prior US IMPRESSION: No intraluminal mobile gallstones. No significant change from prior ultrasound. [facility], , 06/30/2024 11:49 PM
--- NOTE | 2024-07-01 00:17 | CT ---
EXAMINATION TYPE: CT abdomen pelvis w con DATE OF EXAM: 07/01/2024 HISTORY: Pt presents with nausea, vomiting, diarrhea since [address] DLP: 1748.6mGycm Automated Exposure Control for Dose Reduction was Utilized. CONTRAST: CT scan of the abdomen and pelvis is performed without oral and with IV Contrast, patient injected wi th 100 mL of Isovue 300. COMPARISON: None. FINDINGS: LUNG BASES: Mild bibasilar linear scarring and/or atelectasis. LIVER/GB: Hepatomegaly is seen. There is heterogeneously hypodense suggesting diffuse fatty infiltrat ion PANCREAS: No significant abnormality is seen. SPLEEN:. Mild splenomegaly measuring 13.9 cm long axis image 23. ADRENALS: No significant abnormality is seen. KIDNEYS: No significant abnormality is seen. BOWEL: No abnormal small or large bowel dilatation. Some fluid is seen in majority of the colon part icularly cecum in the pelvis which is abnormal finding.. UTERUS/ADNEXA: Anteverted uterus. LYMPH NODES: No greater than 1cm abdominal or pelvic lymph nodes are appreciated. OSSEOUS STRUCTURES: No significant abnormality is seen. OTHER: Tiny fat-containing umbilical hernia sagittal image 78. IMPRESSION: No bowel obstruction. Fluid in the colon is abnormal finding and could reflect product of a mild uncomplicated colitis and/or diarrhea. Hepatosplenomegaly is seen. [facility], , 07/01/2024 12:14 AM
[2024-07-01] MEDS ORDERED: NALOXONE 0.4 MG/ML 1 ML VIAL IV PRN (00:41)
[2024-07-01 01:13] LABS: Amphetamine Screen,Urine Not Detected (NotDetected); Barbiturate Screen,Urine Not Detected (NotDetected); Benzodiazepines Screen,Urine Not Detected (NotDetected); Cocaine Screen,Urine Not Detected (NotDetected); Methadone Screen, Urine Not Detected (NotDetected); Opiate Screen,Urine Not Detected (NotDetected); Oxycodone Screen, Urine Not Detected (NotDetected); Phencyclidine Screen,Urine Not Detected (NotDetected); Tricyclic Antidepressant,Urine Not Detected (NotDetected); Urn Cannabinoid Scrn Not Detected (NotDetected)
[2024-07-01] MEDS: SODIUM CHLORIDE 0.9% 1,000 ML IV SCH ×2 (01:30→11:33)
[2024-07-01] MEDS: SODIUM CHLORIDE 0.9% 1,000 ML IV STA ×2 (01:30)
[2024-07-01] MEDS: KETOROLAC 15 MG/ML 1 ML VIAL IVP PRN (01:34)
[2024-07-01] MEDS: ONDANSETRON 4 MG/2 ML VIAL IVP PRN (01:34)
--- NOTE | 2024-07-01 02:05 | P.HPIM ---
History of Present Illness H&P Date: 07/01/24 Chief Complaint: Nausea, vomiting, and diarrhea History of present illness; 29-year-old female with a PMH of anxiety presents with complaints of nausea, vomiting, and diarrhea. Reports around 5 PM today she started experiencing loose runny stools. Notes that she has a gluten allergy, and ate takeout food that included a chicken quesadilla for which the tortilla did have gluten in it. Reports she ate this meal at 4:30 PM and started having symptoms of N/V/D at 5 PM. Denies hematemesis, hematochezia, or melena. Notes she is on her menstrual cycle and that her bleeding is heavier than normal, and also states she has lower abdominal cramping but contributes this to her menstrual cycle. Although reports that she has some epigastric pain that she rates as a 4 out of 10. States she has tried Tylenol to relieve her symptoms but vomited this up as she has been unable to keep anything down including water. Reports a history of "stomach issues "in the past but has never followed up with her doctor in regards to this. Denies fever, chills, chest pain, shortness of breath, urinary complaints, or peripheral edema. At time of interview patient reports her nausea is significantly improved after receiving antinausea medication in the ED, and has had only 1 watery bowel movement since being in the ED. Labs: -WBC 22.6, hemoglobin 14.6, neutrophils 20, monocytes 1.2, sodium 139, glucose 125, lactate 2.6, T. bili 1.8, AST 67, ALT 20, UA noncontributory, urine tox all negative. -Influenza type A and B, RSV, and COVID all negative. Imaging: -ER gallbladder ultrasound: No intraluminal mobile gallstones. No significant change from prior ultrasound. -ER CT ABD: No bowel obstruction. Fluid in the colon is abnormal finding and could reflect products of a mild uncomplicated colitis and/or diarrhea. Hepatosplenomegaly is seen. REVIEW OF SYSTEMS: As stated above in HPI. The rest of the 14-point review of systems is negative. PHYSICAL EXAMINATION: GENERAL: The patient is alert and oriented x3, not in any acute distress. Well developed, well nourished. Obese. HEENT: Pupils are round and equally reacting to light. EOMI. No scleral icterus. No conjunctival pallor. Normocephalic, atraumatic. CARDIOVASCULAR: S1 and S2 present. No murmurs, rubs, or gallops. PULMONARY: Chest is clear to auscultation b/l, no wheezing or crackles. ABDOMEN: Soft, nondistended, normoactive bowel sounds. No palpable organomegaly. Mild epigastric tenderness. MUSCULOSKELETAL: No joint swelling or deformity. EXTREMITIES: No cyanosis, clubbing, or pedal edema. NEUROLOGICAL: Gross neurological examination did not reveal any focal deficits. SKIN: No rashes. Assessment and Plan 29-year-old female with a PMH of anxiety presents with complaints of nausea, vomiting, and diarrhea. Patient being admitted for observation with this constellation of symptoms in the setting of elevated WBC and plasma lactate. #Nausea, vomiting, diarrhea: Viral enteritis versus colitis vs toxin-induced enterocolitis #Leukocytosis w/ left shift: Likely reactive secondary to continued vomiting and diarrhea #Lactic acidosis -HR 111, WBC 22.6, lactate 2.6 -Continue IV fluids NS 130 ml/hr -Initiate Flagyl 500 mg IV q8h and Cipro 500 mg IV q12h -Continue Zofran 4 mg IVP Q8 HR as needed -Continue Toradol 15 mg IVP every 6 HR as needed for pain -Blood cultures -C diff testing -Check calprotectin levels -Gluten-free diet -Check celiac antibodies #Transaminitis: #Elevated T. bili -Gallbladder ultrasound showed no intraluminal mobile gallstones -In the setting of N/V/D -AST 67 and ALT 20 -Continue IV fluids -Follow-up CMP in the a.m. #Hyperglycemia -A1c ordered -Sliding scale -Accu-Cheks Chronic Conditions: #Anxiety -Continue home paroxetine 20 mg p.o. daily once confirmed by pharmacy F: NS 130 cc/h E: None N: Regular diet A: Normal ambulates unassisted at home DVT ppx: Lovenox 40 SQ daily GI ppx: Protonix 40 mg p.o. daily CODE STATUS: Full code Dispo: Pending clinical course Kelli Marks MD PGY-1 FM Dictation was produced using [employer] dictation software. please excuse any grammatical, word or spelling errors. Past Medical History Past Medical History: No Reported History History of Any Multi-Drug Resistant Organisms: None Reported Past Surgical History: Tonsillectomy Additional Past Surgical History / Comment(s): [place] teeth removal (spring 2022) Past Psychological History: Anxiety Smoking Status: Never smoker Past Alcohol Use History: Rare Past Drug Use History: None Reported Medications and Allergies Home Medications Medication Instructions Recorded Confirmed Type Cetirizine HCl 10 mg PO HS 02/10/16 02/10/16 History Levonorgestrel/Ethin.estradiol 1 tab PO DAILY 02/10/16 02/10/16 History [Aviane-28 Tablet] Mupirocin Calcium [Mupirocin] 1 applic TOPICAL TID 02/10/16 02/10/16 History PARoxetine HCL [Paroxetine HCl] 20 mg PO DAILY 02/10/16 02/10/16 History Ketorolac [Toradol] 10 mg PO Q6HR PRN #15 tab 07/24/23 Rx Ondansetron Odt [Zofran Odt] 4 mg PO Q8HR PRN #15 tab 07/24/23 Rx Allergies Allergy/AdvReac Type Severity Reaction Status Date / Time Milk Containing Products Allergy Nausea Verified 06/30/24 22:27 (Dairy) [Dairy] Penicillins AdvReac Unknown Verified 06/30/24 22:27 Physical Exam Vitals: Vital Signs Temp Pulse Resp BP Pulse Ox 06/30/24 23:17 97 17 116/62 97 06/30/24 22:27 97.5 F L 111 H 16 126/69 97 Intake and Output 06/30/24 06/30/24 07/01/24 14:59 22:59 06:59 Other: Weight 99.79 kg Results CBC & Chem 7: 06/30/24 23:08 07/01/24 01:58 Labs: Abnormal Lab Results - Last 24 Hours (Table) 06/30/24 06/30/24 06/30/24 Range/Units 23:08 23:08 23:08 WBC 22.6 H (3.8-10.6) k/uL Neutrophils # 20.0 H (1.3-7.7) k/uL Monocytes # 1.2 H (0-1.0) k/uL Glucose 125 H (74-99) mg/dL Plasma Lactic Acid Dusty 2.6 H* (0.7-2.0) mmol/L Total Bilirubin 1.8 H (0.2-1.3) mg/dL AST 67 H (14-36) U/L Total Protein 9.5 H (6.3-8.2) g/dL Albumin 5.6 H (3.5-5.0) g/dL Urine Protein (Negative) Urine Ketones (Negative) Urine Blood (Negative) Urine Mucus (None) /hpf 06/30/24 Range/Units 23:32 WBC (3.8-10.6) k/uL Neutrophils # (1.3-7.7) k/uL Monocytes # (0-1.0) k/uL Glucose (74-99) mg/dL Plasma Lactic Acid Dusty (0.7-2.0) mmol/L Total Bilirubin (0.2-1.3) mg/dL AST (14-36) U/L Total Protein (6.3-8.2) g/dL Albumin (3.5-5.0) g/dL Urine Protein 1+ H (Negative) Urine Ketones 1+ H (Negative) Urine Blood Moderate H (Negative) Urine Mucus Moderate H (None) /hpf
[2024-07-01] MEDS: SODIUM CHLORIDE 0.9% 1,000 ML IV ONE (02:43)
[2024-07-01] MEDS ORDERED: DEXTROSE 50% SYRINGE 50 ML IVP PRN ×2 (02:49)
[2024-07-01] MEDS: LEVOFLOXACIN 250MG-D5W PMX 250 MG in DEXTROSE/WATER 1 50ML.BAG IVPB SCH (04:30)
[2024-07-01 05:11] LABS: Glucose,Whole Blood 130 mg/dL (70-110)
[2024-07-01 06:38] VITALS: RESP 16
[2024-07-01 07:49] LABS: Glucose,Whole Blood 126 mg/dL (70-110)
[2024-07-01 08:03] VITALS: TEMP 98.4
[2024-07-01] MEDS: INSULIN ASPART (NovoLOG) 100 UNIT/ML VIAL SQ SCH (08:31)
[2024-07-01] MEDS: PANTOPRAZOLE 40 MG TABLET PO SCH (08:33)
[2024-07-01] MEDS: ACETAMINOPHEN TAB 325 MG TAB PO PRN (08:34)
[2024-07-01] MEDS: ENOXAPARIN 40 MG/0.4 ML SYRINGE SQ SCH (08:35)
[2024-07-01] MEDS: metroNIDAZOLE-NS PMX 500 MG in SALINE 1 100ML.BAG IVPB SCH (08:38)
--- NOTE | 2024-07-01 11:52 | P.DS ---
Providers Date of admission: 07/01/24 00:42 Attending physician: Linnette Reaves MD Primary care physician: [facility] Course: 29-year-old female with a PMH of anxiety presents with complaints of nausea, vomiting, and diarrhea. Reports around 5 PM today she started experiencing loose runny stools. Notes that she has a gluten allergy, and ate takeout food that included a chicken quesadilla for which the tortilla did have gluten in it. Reports she ate this meal at 4:30 PM and started having symptoms of N/V/D at 5 PM. Denies hematemesis, hematochezia, or melena. Notes she is on her menstrual cycle and that her bleeding is heavier than normal, and also states she has lower abdominal cramping but contributes this to her menstrual cycle. Although reports that she has some epigastric pain that she rates as a 4 out of 10. States she has tried Tylenol to relieve her symptoms but vomited this up as she has been unable to keep anything down including water. Reports a history of "stomach issues "in the past but has never followed up with her doctor in regards to this. Denies fever, chills, chest pain, shortness of breath, urinary complaints, or peripheral edema. She was treated with iv levaquin/flagyl and ivf during this hospital course. her symptoms had improved and she was discharged home on 07/01 afternoon Assessment: #Nausea, vomiting, diarrhea: Viral enteritis versus colitis vs toxin-induced enterocolitis, discharged home on ciprofloxacin. able to tolerate a diet upon discharge. #Leukocytosis w/ left shift: Likely reactive secondary to continued vomiting and diarrhea #Lactic acidosis, resolved Patient Condition at Discharge: Stable Plan - Discharge Summary New Discharge Prescriptions: New Ciprofloxacin HCl [Cipro] 500 mg PO Q12HR 5 Days #2 tab Ondansetron Odt [Zofran Odt] 4 mg PO Q8HR PRN #21 tab PRN Reason: Nausea And Vomiting No Action Escitalopram [Lexapro] 5 mg PO DAILY Multivitamins, Thera [Multivitamin (formulary)] 1 tab PO HS Discharge Medication List Ciprofloxacin HCl [Cipro] 500 mg PO Q12HR 5 Days #2 tab 07/01/24 [Rx] Escitalopram [Lexapro] 5 mg PO DAILY 07/01/24 [History] Multivitamins, Thera [Multivitamin (formulary)] 1 tab PO HS 07/01/24 [History] Ondansetron Odt [Zofran Odt] 4 mg PO Q8HR PRN #21 tab 07/01/24 [Rx] Follow up Appointment(s)/Referral(s): Kristen Romero, FARIDEH [STAFF PHYSICIAN] - 1-2 days Discharge Disposition: HOME SELF-CARE
[2024-07-01 12:24] LABS: Glucose,Whole Blood 100 mg/dL (70-110)
[2024-07-01 14:56] VITALS: BP 134/75; PULSE 104
[2024-07-01 16:18] LABS: Gliadin AB IgA, Deaminated Negative (Negative); Gliadin AB IgA, Unit 1.1 U/mL; Gliadin AB IgG, Deaminated Negative (Negative); Gliadin AB IgG, Unit <0.4 U/mL
== END 2024-07-01 14:55 | disposition home or self-care (01) ==
LOC: EC 22:19 → 5NMEDONC 07-01 00:42
PROVIDERS: ADMIT Internal Medicine; ATTEND Internal Medicine
DX: R11.2 Nausea with vomiting, unspecified (principal); R19.7 Diarrhea, unspecified; D72.829 Elevated white blood cell count, unspecified; F41.9 Anxiety disorder, unspecified; E87.20 Acidosis, unspecified; R74.01 Elevation of levels of liver transaminase levels; R73.9 Hyperglycemia, unspecified; Z79.899 Other long term (current) drug therapy; Z88.0 Allergy status to penicillin; Z91.011 Allergy to milk products
CPT/HCPCS: 96376; 96361 ×2; 96365; 96366; 96367; 96372; 96375 ×2; 99285; 36415; 80053; 82150; 83605 ×2; 83690; 84132; 85025; 81001; 81025; 87040; 83993; 80306; 83516 ×4; 83036; 87636; 76705; 74177; G0378; J2405 ×2; J1956; J1650; J1885; Q9967; J1836